=== PATIENT | male | born 1955 | race Caucasian/White ===

== ENCOUNTER 2016-06-03 19:52 | Emergency (ER) | payer OTHER ==
[~2016-06-03] VITALS: Ht 180.3 cm; Wt 86.0 kg
[~2016-06-03 19:52] MED LIST: ASPI81TA3 PO; ATOR40TA68 PO; BLOO-175 MC; BUME1TAB18 PO; Levofloxacin PO; METO25TA7 PO; MTF1000T PO; OMEP20CA9 PO
[2016-06-03 20:32] VITALS: Ht 180.3 cm; Wt 86.0 kg
[2016-06-03] MEDS ORDERED: HYDR30CR75 PR (21:45)
[2016-06-03] MEDS ORDERED: HYDR-906 PO (21:46)
[2016-06-03] MEDS ORDERED: IBUP-1542 PO (21:46)
--- NOTE | 2016-06-03 21:51 | ERD ---
ER Documentation Chief Complaint Date/Time DATE: 06/03/16 TIME: 21:47 Chief Complaint Hemorrhoids x 1 week. Pain HPI Patient is a 61-year-old male who presents to the emergency department with rectal pain 1 week. Patient states he has a history of hemorrhoids. Patient states his pain is constant and throbbing in nature. He states he has been using [id number] hemorrhoid came with no alleviation of symptoms. Patient states that he often does strain with bowel movements. Patient reports hard stools. Denies any rectal bleeding. Patient reports decreased H2O intake. Patient denies any abdominal pain, nausea, vomiting, fever, chills, chest pain, shortness of breath or loss of consciousness. Patient states he has not had a colonoscopy yet. ROS All systems reviewed and are negative except as per history of present illness. Medications Home Meds Active Scripts Ibuprofen* (Ibuprofen*) 600 Mg Tablet, 600 MG PO Q6, #20 TAB Prov:TAYLOR BYRD PA-C 06/03/16 Hydrocodone/Acetaminophen ([place] 5-325 Tablet) 1 Each Tablet, 1 TAB PO Q6H Y for PAIN, #7 TAB Prov:TAYLOR BYRD PA-C 06/03/16 Hydrocortisone Acetate* (Anusol-HC*) 30 Gm Cream.gm., 1 APPLIC ME BID, #1 TUB Prov:TAYLOR BYRD PA-C 06/03/16 Blood-Glucose Meter (Blood Glucose Monitor) 1 Kit Kit, 1 KIT MC, #1 Prov:BESS ACEVEDO 03/16/15 Metformin* (Glucophage*) 1,000 Mg Tablet, 1000 MG PO BID, #60 TAB 3 Refills Prov:BESS ACEVEDO 03/16/15 Aspirin (Aspirin) 81 Mg Chew, 81 MG PO DAILY, #30 TAB 3 Refills Prov:BESS ACEVEDO 03/16/15 [Levofloxacin] 500 MG TAB No Conflict Check, 500 MG PO DAILY@06, #7 TAB Take 1 tablet daily for 7 days Prov:BESS ACEVEDO 03/16/15 Metoprolol Succinate* (Toprol XL*) 25 Mg Tabsr, 25 MG PO DAILY, #30 3 Refills Prov:BESS ACEVEDO 03/16/15 Bumetanide* (Bumetanide*) 1 Mg Tab, 1 MG PO DAILY, #30 TAB 3 Refills Prov:BESS ACEVEDO 03/16/15 Atorvastatin* (Atorvastatin*) 40 Mg Tablet, 40 MG PO HS, #30 TAB 3 Refills Prov:BESS ACEVEDO 03/16/15 Omeprazole* (Prilosec*) 20 Mg Capsule.dr, 20 MG PO DAILY for 30 Days, CAP Prov:LEXIE WHEELER MD 02/23/15 Allergies Allergies: Coded Allergies: No Known Allergy (Verified , 02/25/15) PMhx/Soc History of Surgery: Yes (PCI; CABG 03/02/15) Anesthesia Reaction: No Hx Neurological Disorder: No Hx Respiratory Disorders: No Hx Cardiac Disorders: Yes (cad, stent 2001) Hx Psychiatric Problems: No Hx Miscellaneous Medical Probl: Yes (CAD, non insulin dep DM, HTN) Hx Alcohol Use: Yes (OCCASSIONALLY) Hx Substance Use: No Hx Tobacco Use: No Smoking Status: Never smoker Physical Exam Vitals Vital Signs Date Time Temp Pulse Resp B/P Pulse Ox O2 Delivery O2 Flow Rate FiO2 06/03/16 20:32 83 18 141/75 98 Physical Exam GENERAL: Well-developed, well-nourished male. Appears in no acute distress. HEAD: Normocephalic, atraumatic. EYES: Pupils are equally reactive bilaterally. EOMs grossly intact. No conjunctival erythema. ENT: Moist mucous membranes. No uvula deviation. No kissing tonsils. NECK: Supple. No meningismus. Normal range of motion of the neck. LUNG: Clear to auscultation bilaterally. No rhonchi, wheezing, rales or coarse breath sounds. HEART: Regular rate and rhythm. No murmurs, rubs or gallops. ABDOMEN: No scars, ecchymosis or rashes noted. Soft, nontender, and nondistended. Positive bowel sounds in all four quadrants. No rebound tenderness , no guarding. (-) McBurney's point tenderness. No CVA tenderness. 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 Normal appearing anus. +external hemorrhoids. No rectal bleeding noted. Unable to rule out internal hemorrhoids at this time. BACK: No midline tenderness. EXTREMITIES: Equal pulses bilaterally. No peripheral clubbing, cyanosis or edema. No unilateral leg swelling. NEUROLOGIC: Alert and oriented. Moving all four extremities without any difficulty. Normal speech. Steady gait. SKIN: Normal color. Warm and dry. No rashes or lesions. Procedures/MDM MEDICAL DECISION MAKING: Patient is a 7-year-old male who presents with rectal pain 1 week. Patient does have a history of hemorrhoids. Vital signs were reviewed. Patient is afebrile. Patient was not hypoxic. Patient was hemodynamically stable. Rectal exam revealed external hemorrhoids. Unable to rule out any internal hemorrhoids at this time. No active bleeding. At this time patient's presentation is most consistent with external hemorrhoids. Patient will need to follow-up with a GI specialist for further management of his symptoms including possible rubber band ligation. Patient also has not had a colonoscopy done yet. Patient will need to have this scheduled as soon as possible. At this time there is a low suspicion for perirectal abscess, pilonidal cyst, anal fissure, Crohns disease, ulcerative colitis. Unable to rule internal hemorrhoids. PRESCRIPTION: Anusol, [place], ibuprofen DISCHARGE: At this time, patient is stable for discharge and outpatient management. I have instructed the patient to follow-up with his/her primary care physician in 1-2 days. I have discussed with the patient the possibility of needing to see a GI specialist for further workup and imaging studies if symptoms persist. I have instructed the patient to promptly return to the ER for any new or worsening symptoms including increased pain, fever, nausea, vomiting, weakness or LOC. The patient and/or family expressed understanding of and agreement with this plan. All questions were answered. Home care instructions were provided. Departure Diagnosis: Primary Impression: Hemorrhoid Hemorrhoid type: unspecified Qualified Code: K64.9 - Hemorrhoids, unspecified hemorrhoid type Condition: Stable Patient Instructions: Hemorrhoids Referrals: [facility] YOU HAVE RECEIVED A MEDICAL SCREENING EXAM AND THE RESULTS INDICATE THAT YOU DO NOT HAVE A CONDITION THAT REQUIRES URGENT TREATMENT IN THE EMERGENCY DEPARTMENT. FURTHER EVALUATION AND TREATMENT OF YOUR CONDITION CAN WAIT UNTIL YOU ARE SEEN IN YOUR DOCTORS OFFICE WITHIN THE NEXT 1-2 DAYS. IT IS YOUR RESPONSIBILITY TO MAKE AN APPOINTMENT FOR FOLOW-UP CARE. IF YOU HAVE A PRIMARY DOCTOR --you should call your primary doctor and schedule an appointment IF YOU DO NOT HAVE A PRIMARY DOCTOR YOU CAN CALL OUR PHYSICIAN REFERRAL HOTLINE AT IF YOU CAN NOT AFFORD TO SEE A PHYSICIAN YOU CAN CHOSE FROM THE FOLLOWING [facility] [address] [facility] [address] [facility] [address] [facility] [address] [facility] [place] [address] [facility]. [facility]. [address] [facility]. [facility] YOU HAVE RECEIVED A MEDICAL SCREENING EXAM AND THE RESULTS INDICATE THAT YOU DO NOT HAVE A CONDITION THAT REQUIRES URGENT TREATMENT IN THE EMERGENCY DEPARTMENT. FURTHER EVALUATION AND TREATMENT OF YOUR CONDITION CAN WAIT UNTIL YOU ARE SEEN IN YOUR DOCTORS OFFICE WITHIN THE NEXT 1-2 DAYS. IT IS YOUR RESPONSIBILITY TO MAKE AN APPOINTMENT FOR FOLOW-UP CARE. IF YOU HAVE A PRIMARY DOCTOR --you should call your primary doctor and schedule and appointment IF YOU DO NOT HAVE A PRIMARY DOCTOR YOU CAN CALL OUR PHYSICIAN REFERRAL HOTLINE AT . IF YOU CAN NOT AFFORD TO SEE A PHYSICIAN YOU CAN CHOSE FROM THE FOLLOWING [facility]: [facility] [address] [place] [address] [facility] [address] [place] [address] [facility] [address] [place] [address] Additional Instructions: She will need to follow-up with his GI specialist for further management of his hemorrhoids including possible rubber band ligation procedure. Patient will also need to have a colonoscopy given that he has not had one yet. Call your primary care doctor TOMORROW for an appointment during the next 1-2 days.See the doctor sooner or return here if your condition worsens before your appointment time. TAYLOR BYRD PA-C Jun 03, 2016 21:51
== END 2016-06-03 22:24 | disposition home or self-care (01) ==
LOC: FTE 19:52
DX: K64.4 Residual hemorrhoidal skin tags (principal); I10 Essential (primary) hypertension; E11.9 Type 2 diabetes mellitus without complications; I25.10 Atherosclerotic heart disease of native coronary artery without angina pectoris; Z79.82 Long term (current) use of aspirin; Z79.84 Long term (current) use of oral hypoglycemic drugs; Z95.5 Presence of coronary angioplasty implant and graft
CPT/HCPCS: 99284